=== PATIENT | female | born 1930 | race Caucasian/White ===

== ENCOUNTER 2018-01-21 11:01 | Emergency (ER) | payer MEDICARE, OTHER ==
[~2018-01-21] VITALS: Ht 160 cm; Wt 94.0 kg
[~2018-01-21 11:01] MED LIST: CALC12502 PO; COQ1200C3 OR; ESTR.3 PO; FERR324T PO; LEVO.1 PO; MICARDIS PO; NOVALOG FLEX PEN; PAXI20TA26 PO; PIOG15 PO; POTASSIUM PO; SUPETAB30 PO; TOPR25TA2 PO; VITA100020 PO; VITA200017 OR; WELC625T2 PO
[2018-01-21 11:21] VITALS: BP 136/62; PULSE 76; RESP 16; TEMP 98.3; O2SAT 97
--- NOTE | 2018-01-21 11:59 | PD ---
HPI Chief Complaint: Musculoskeletal Complaint Time Seen by Provider: 11:41 Travel History International Travel<30 days: No Contact w/Intl Traveler<30days: No Traveled to known affect area: No History of Present Illness HPI 87-year-old female that presents to the ED for evaluation of right leg pain. Per patient she's had this right leg pain chronically for some time. Per patient she's had multiple fractures and surgeries to her right leg as well as to her left leg. She has a bad history of osteoporosis and has had stress fractures because of this. Per patient she follows with Dr. Mcmahon and Dr. Alegria. 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 Per patient is become more severe the past couple days. She recently moved to [facility] and and has been having discomfort since. Per patient she said takes Tylenol for arthritis with some relief but she continues to have the pain. Apparently she tried herself to try to contact the orthopedic clinic to see they could see her but they could not see her so she called the ambulance and they brought her here. Per patient she uses a walker and even with a walker she has excruciating pain. She does tell me that she was told by Dr. Mcmahon that she might have some compression fractures in her back. She denies any numbness, tilling, weakness. Per patient the pain goes from the lateral right leg all the way down the leg. Patient per patient is 10 out of 10. She denies any injuries or falls recently. No other medical issues. Patient patient denies any urinary or bowel movement issues. PFSH Past Medical History Arthritis: Yes Blood Disorders: No Anxiety: Yes Depression: Yes Cancer: No Cardiovascular Problems: Yes High Cholesterol: Yes Diabetes: Yes Patient Takes Glucophage: No Endocrine: Yes Genitourinary: No Hypertension: Yes Immune Disorder: No Implanted Vascular Access Dvce: Yes Musculoskeletal: Yes Neurologic: Yes Psychiatric: No Reproductive: No Respiratory: No Thyroid Disease: Yes Past Surgical History Abdominal Surgery: Yes (APPENDECTOMY 1947) Appendectomy: Yes Body Medical Devices: BLANCHE EYE LENS IMPLANT Eye Surgery: Yes (BILATERAL CATARACT SX) Gynecologic Surgery: Yes (EXP LAP RIGHT OVARIAN CYST 1949; HYSTERECTOMY 1965) Joint Replacement: Yes (BILATERAL KNEES) Other Surgery: Yes Social History Alcohol Use: No Tobacco Use: No Allergies-Medications (Allergen,Severity, Reaction): Coded Allergies: penicillin G (Unverified Allergy, Intermediate, RASH, 06/18/17) Reported Meds & Prescriptions Reported Meds & Active Scripts Active Reported [Novalog Flex Pen] 20 U BID Ferrous Gluconate 325 Mg Tab 0 PO DAILY UNKNOWN DOSE Coq10 (Coenzyme Q10) 200 Mg Cap 200 Mg OR BID Vitamin B-12 (Cyanocobalamin) 1 000 Sub 1,000 Mcg PO BID Vitamin D3 (Cholecalciferol) 2,000 Unit Chw 1,000 Unit OR BID [Potassium] 550 Mg PO DAILY Os-Jasbir (Calcium Carbonate) 1,250 Mg Tab 1,250 Mg PO DAILY Theragran M (Multivitamins/Minerals Therapeutic) 1 Tab Tab 1 Tab PO DAILY Paxil (Paroxetine HCl) 20 Mg Tab 40 Mg PO DAILY [Micardis ] PO DAILY 80/25 MG 1 TAB DAILY Toprol Xl (Metoprolol Succinate) 25 Mg Tabcr 25 Mg PO BID Premarin (Estrogens Conjugated) 0.3 Mg Tab 0.3 Mg PO DAILY Actos (Pioglitazone HCl) 15 Mg Tab 15 Mg PO DAILY Welchol (Colesevelam HCl) 625 Mg Tab 625 Mg PO DIRECTED 3 TAB BID Synthroid (Levothyroxine Sodium) 100 Mcg Tab 100 Mcg PO DAILY Review of Systems Except as stated in HPI: all other systems reviewed are Neg Physical Exam Narrative GENERAL: SKIN: Warm and dry. HEAD: Atraumatic. Normocephalic. EYES: Pupils equal and round. No scleral icterus. No injection or drainage. ENT: No nasal bleeding or discharge. Mucous membranes pink and moist. Tongue is midline. No uvula deviation. NECK: Trachea midline. No JVD. CARDIOVASCULAR: Regular rate and rhythm. RESPIRATORY: No accessory muscle use. Clear to auscultation. Breath sounds equal bilaterally. GASTROINTESTINAL: Abdomen soft, non-tender, nondistended. Hepatic and splenic margins not palpable. MUSCULOSKELETAL: Extremities without clubbing, cyanosis, or edema. No obvious deformities. Full range of motion of the upper and lower extremity is bilaterally. Patient does have reproducible pain on the posterior aspect of the left. No lumbar, thoracic, cervical spine tenderness to palpation. 2+ pulses bilaterally. Sensation intact bilaterally. Pain reproducible with movement. NEUROLOGICAL: Awake and alert. No obvious cranial nerve deficits. Motor grossly within normal limits. Five out of 5 muscle strength in the arms and legs. Normal speech. PSYCHIATRIC: Appropriate mood and affect; insight and judgment normal. Data Data Last Documented VS Vital Signs Date Time Temp Pulse Resp B/P (MAP) Pulse Ox O2 Delivery O2 Flow Rate FiO2 01/21/18 11:21 98.3 76 16 136/62 (86) [address] Lumb Spine W/O Contrast (01/21/18 11:51) Femur (Ap & Lat/2vws) (01/21/18 11:51) Acetamin-Hydrocod 325-5 Mg ([place] 5-325 (01/21/18 12:00) MDM Medical Decision Making Medical Screen Exam Complete: Yes Emergency Medical Condition: Yes Medical Record Reviewed: Yes Differential Diagnosis Compression fracture versus muscle strain versus muscle spasm versus acute on chronic pain versus chronic pain Narrative Course 87-year-old female that presents to the ED for evaluation of right leg pain. Patient was properly examined and was found to have signs and symptoms consistent with appears to be likely muscle scale pain. Cannot rule out DVT or any other disease. She does have significant history of osteoporosis. Imaging was ordered. Patient was given Lortab. I was informed by ED nurse that apparently patient did give herself insulin and has not eaten breakfast. She was given food here and she's been feeling fine since. Her blood sugar rechecked was in the 80s. She will be assessed again. Patient will be signed out to incoming provider pending disposition and plan. Yasmany Isidro Jan 21, 2018 11:59
[2018-01-21] MEDS ORDERED: ACETAMINOPHEN/HYDROcodone 325 MG/5 MG TAB PO ONE (12:00)
--- NOTE | 2018-01-21 12:52 | RADRPT ---
EXAM DATE/TIME: 01/21/2018 12:11 [facility] COMPARISON: No previous studies available for comparison. INDICATIONS : Radiculopathy, right leg pain. RADIATION DOSE: 38.79 CTDIvol (mGy) MEDICAL HISTORY : Cardiovascular disease. Hypertension. Diabetes mellitus type 2. SURGICAL HISTORY : None. ENCOUNTER: Initial ACUITY: 1 day PAIN SCALE: 6/10 LOCATION: Right leg TECHNIQUE: Volumetric scanning of the lumbar spine was performed. Multiplanar reconstructions in the sagittal, coronal and oblique axial planes were performed. Using automated exposure control and adjustment of the mA and/or kV according to patient size, radiation dose was kept as low as reasonably achievable t o obtain optimal diagnostic quality images. DICOM format image data is available electronically for review and comparison. FINDINGS: VERTEBRAE: Mild to moderate loss of height L2 appears old. No retropulsion of posterior fragments. Acute mild shabazz perior endplate compression fracture L4. No retropulsion of posterior fragments. Moderate compression fracture at L5 appears old. Advanced multilevel degenerative changes. Minimal anterolisthesis of L3 on 4 T12-L1: The thecal sac has a normal diameter. No evidence of disc bulge or protrusion. The neural foramina are patent bilaterally. L1-L2: Mild broad-based disc bulge without canal stenosis. The neural foramina are patent bilaterally. L2-L3: Mild broad-based disc bulge and hypertrophic facets causing mild canal stenosis.. The neural foramin a are patent bilaterally. L3-L4: Minimal anterolisthesis with broad-based disc bulge and hypertrophic facets causes severe canal steno sis. Mild neural foraminal narrowing bilaterally. L4-L5: Mild broad-based disc bulge with hypertrophic facet cause moderate canal stenosis. Moderate bilateral neural foraminal narrowing. L5-S1: Moderate asymmetric left sided protrusion abuts the ventral thecal sac. No canal stenosis. Hypertroph ic facets. The disc abuts exiting left L5 nerve root where there is severe neural foraminal encroachm ent. Right neural foramen is patent. CONCLUSION: 1. Acute superior endplate compression fracture L4. 2. Old appearing compression deformities at L2 and L5. 3. Multilevel protrusions and hypertrophic facets causing significant canal stenosis at L3-4 and L4-5 levels as described above. Josh Ellison MD on January 21, 2018 at 12:44 Board Certified Radiologist. This report was verified electronically.
--- NOTE | 2018-01-21 12:55 | RADRPT ---
EXAM DATE/TIME: 01/21/2018 12:23 [facility] COMPARISON: No previous studies available for comparison. INDICATIONS : Right leg pain. MEDICAL HISTORY : Hypertension. Hypercholesterolemia. Arthritis. Diabetes. SURGICAL HISTORY : Appendectomy. Exp lap for right ovarian cyst. ORIF, right femur. ENCOUNTER: Initial ACUITY: 3 weeks PAIN SCORE: 4/10 LOCATION: Right leg. TECHNIQUE: Venous ultrasound of the leg was performed from the inguinal ligament to the proximal calf. Real-ck e, color Doppler and spectral tracing, compression and augmentation techniques were used. FINDINGS: There is normal compressibility of the deep venous system from the inguinal region to the proximal ca lf. No echogenic clot is seen in the lumen of the common femoral, femoral, popliteal, and posterior tibial veins. There is a normal response of the venous system to proximal and distal augmentation an d respiration. CONCLUSION: No DVT right leg. Josh Ellison MD on January 21, 2018 at 12:51 Board Certified Radiologist. This report was verified electronically.
--- NOTE | 2018-01-21 13:03 | PD ---
Data Data Last Documented VS Vital Signs Date Time Temp Pulse Resp B/P (MAP) Pulse Ox O2 Delivery O2 Flow Rate FiO2 01/21/18 11:21 98.3 76 16 136/62 (86) [address] Lumb Spine W/O Contrast (01/21/18 11:51) Femur (Ap & Lat/2vws) (01/21/18 11:51) Acetamin-Hydrocod 325-5 Mg ([place] 5-325 (01/21/18 12:00) Us Leg Venous Doppler (01/21/18 ) Bedside Glucose ROWAN.CSUGAR (01/21/18 11:59) TLSO (01/21/18 ) Ed Discharge Order (01/21/18 16:16) Brace Lso-Orthosis (01/21/18 ) Brace Thoracic Ext (01/21/18 ) MDM Supervised Visit with EVE: Yes Narrative Course Patient CARE soon from Yasmany Isidro when the patient was roomed in to [facility] pod from the back wall/ambulance [facility]. Patient appears fairly comfortable and in no obvious distress. She tells me that she has been having pain in her low back on and off for months, she states is been gradually worsening over the past week to the point where it was incredibly intense this morning. The patient does not have any cauda equina symptoms, no saddle anesthesia no difficulty with urination. She is lying in stretcher and appears very comfortable. Last [address] 01/21/18 1151 Signed Impressions: Service Date/Time: Sunday, January 21, 2018 12:11 - CONCLUSION: 1. Acute superior endplate compression fracture L4. 2. Old appearing compression deformities at L2 and L5. 3. Multilevel protrusions and hypertrophic facets causing significant canal stenosis at L3-4 and L4-5 levels as described above. Josh Ellison MD Femur X-Ray 01/21/18 1151 Signed Impressions: Service Date/Time: Sunday, January 21, 2018 13:14 - CONCLUSION: No acute fracture or joint dislocation. Gerardo Galicia MD Lower Extremity Ultrasound 01/21/18 0000 Signed Impressions: Service Date/Time: Sunday, January 21, 2018 12:23 - CONCLUSION: No DVT right leg. Josh Ellison MD Patient's care was then discussed with Dr. Oh who is Dr. Mcmahon's partner who is follows her for 2 previous lumbar vertebral fractures. I discussed with Dr. Christine be that the patient appears to have an acute fracture at L4. She has reviewed the x-rays with me and compared to her previous x-rays and indeed this does appear to be an acute fracture. After reviewing discussion of her neurologic status she agrees that the patient be placed in a TLSO brace and if she can ambulate then she can go home. If not she should be discussed with neurosurgery. While waiting for Dr. Christine be his call back a page was placed to neurosurgery and was briefly discussed with the neurosurgeon on- call who agrees the patient be placed in a TLSO brace and go home. She was able to ambulate to the bathroom with some assistance, she normally walks with a walker. She said some hesitancy with going back to her assisted living facility but will try to arrange for her to get some home health care when she gets back there. At this time she is ambulatory her pain is well controlled and she is neurologically intact and there is no indication further workup or inpatient management. She is stable for discharge. Diagnosis Primary Impression: Compression fracture of L4 lumbar vertebra Scripts Hydrocodone-Acetaminophen ([place]) 5 Mg-325 Mg Tab 1 TAB PO Q6H Y for PAIN, #20 TAB 0 Refills Prov: Roger Rain MD 01/21/18 Disposition: 01 DISCHARGE HOME Condition: Stable Roger Rain MD Jan 21, 2018 13:03
--- NOTE | 2018-01-21 13:32 | RADRPT ---
EXAM DATE/TIME: 01/21/2018 13:14 [facility] COMPARISON: No previous studies available for comparison. INDICATIONS : Right femur pain. MEDICAL HISTORY : None. SURGICAL HISTORY : Total knee replacement, right. ORIF right distal femur ENCOUNTER: Initial ACUITY: 2 weeks PAIN SCORE: 6/10 LOCATION: Right femur FINDINGS: No acute fracture joint dislocation. Evidence of previous internal fixation involving the mid to dist al femur. There is an old healed fracture involving the distal femur. The hardware is grossly intact. There is a knee prosthesis in place. CONCLUSION: No acute fracture or joint dislocation. Gerardo Galicia MD on January 21, 2018 at 13:29 Board Certified Radiologist. This report was verified electronically.
[2018-01-21] MEDS ORDERED: NORC5TAB PO (16:18)
== END 2018-01-21 17:08 | disposition home or self-care (01) ==
LOC: NEPD 11:01
DX: M48.56XA Collapsed vertebra, not elsewhere classified, lumbar region, initial encounter for fracture (principal); E07.9 Disorder of thyroid, unspecified; E11.9 Type 2 diabetes mellitus without complications; I10 Essential (primary) hypertension; Z79.4 Long term (current) use of insulin
CPT/HCPCS: 72131; 73552; 93971; 99285; L0200; L0484

== ENCOUNTER 2018-03-25 11:37 | Emergency (ER) | payer MEDICARE, OTHER ==
[~2018-03-25] VITALS: Ht 162.6 cm; Wt 93.0 kg
[~2018-03-25 11:37] MED LIST changes: +NORC5TAB PO
[2018-03-25 12:12] VITALS: BP 174/72; PULSE 42; RESP 16; TEMP 98.5; O2SAT 97
[2018-03-25] MEDS ORDERED: KETOROLAC TROMETHAMINE 60 MG/2 ML (IM) VIAL IM ONE (13:15)
--- NOTE | 2018-03-25 13:32 | PD ---
HPI Chief Complaint: Fall Time Seen by Provider: 12:59 Travel History International Travel<30 days: No Contact w/Intl Traveler<30days: No Traveled to known affect area: No History of Present Illness HPI 87-year-old female complains of low back pain and right hip pain. Patient states that she fell this morning. Patient states that she has history of fracture L4 lumbar spine about 2 months ago. Patient states that she has been seen by orthopedist and going to physical therapy. Patient states that she fell again this morning on her buttock. Patient states that she has increase in low back pain with radiation to the right hip and right leg. Patient states that she usually has low back pain with pain radiation to right hip and right leg however the pain is worse after the fall. Patient denies any headache. Patient denies any chest pain or shortness of breath. Patient denies abdominal pain. Patient denies any focal weakness or numbness of the extremity. Patient take aspirin 81 mg, 2 tablet daily. Patient takes hydrocodone as needed for back pain. On a scale of 1-10 the pain is an 8. PFSH Past Medical History Arthritis: Yes Blood Disorders: No Anxiety: Yes Depression: Yes Cancer: No Cardiovascular Problems: Yes High Cholesterol: Yes Diabetes: Yes Patient Takes Glucophage: No Endocrine: Yes Gastrointestinal Disorders: No Genitourinary: No Hypertension: Yes Immune Disorder: No Implanted Vascular Access Dvce: Yes Musculoskeletal: Yes Neurologic: Yes Psychiatric: No Reproductive: No Respiratory: No Thyroid Disease: Yes Past Surgical History Abdominal Surgery: Yes (APPENDECTOMY 1947) Appendectomy: Yes Body Medical Devices: BLANCHE EYE LENS IMPLANT Eye Surgery: Yes (BILATERAL CATARACT SX) Gynecologic Surgery: Yes (EXP LAP RIGHT OVARIAN CYST 1949; HYSTERECTOMY 1965) Joint Replacement: Yes (BILATERAL KNEES) Other Surgery: Yes Social History Alcohol Use: No Tobacco Use: No Allergies-Medications (Allergen,Severity, Reaction): Coded Allergies: penicillin G (Unverified Allergy, Intermediate, RASH, 06/18/17) Reported Meds & Prescriptions Reported Meds & Active Scripts Active [place] (Hydrocodone-Acetaminophen) 5 Mg-325 Mg Tab 1 Tab PO Q6H PRN Reported [Novalog Flex Pen] 20 U BID Ferrous Gluconate 325 Mg Tab 0 PO DAILY UNKNOWN DOSE Coq10 (Coenzyme Q10) 200 Mg Cap 200 Mg OR BID Vitamin B-12 Extended Rel (Miscellaneous Medication) 1 000 Sub 1,000 Mcg PO BID Vitamin D3 Super Strength (Cholecalciferol) 2,000 Unit Chw 1,000 Unit OR BID [Potassium] 550 Mg PO DAILY Os-Jasbir (Calcium Carbonate) 1,250 Mg Tab 1,250 Mg PO DAILY Theragran M (Multivitamins/Minerals Therapeutic) 1 Tab Tab 1 Tab PO DAILY Paxil (Paroxetine HCl) 20 Mg Tab 40 Mg PO DAILY [Micardis ] PO DAILY 80/25 MG 1 TAB DAILY Toprol Xl (Metoprolol Succinate) 25 Mg Tabcr 25 Mg PO BID Premarin (Estrogens Conjugated) 0.3 Mg Tab 0.3 Mg PO DAILY Actos 15 mg (Pioglitazone HCl) 15 Mg Tab 15 Mg PO DAILY Welchol (Colesevelam HCl) 625 Mg Tab 625 Mg PO DIRECTED 3 TAB BID Synthroid 100 mcg (Levothyroxine Sodium) 100 Mcg Tab 100 Mcg PO DAILY Review of Systems General / Constitutional: No: Fever Eyes: No: Visual changes HENT: No: Headaches Cardiovascular: No: Chest Pain or Discomfort Respiratory: No: Shortness of Breath Gastrointestinal: No: Abdominal Pain Genitourinary: No: Dysuria Musculoskeletal: No: Pain Skin: No Rash Neurologic: No: Weakness Psychiatric: No: Depression Endocrine: No: Polydipsia Hematologic/Lymphatic: No: Easy Bruising Physical Exam Narrative GENERAL: Well-nourished, well-developed patient. SKIN: Focused skin assessment warm/dry. HEAD: Normocephalic. EYES: No scleral icterus. No injection or drainage. NECK: Supple, trachea midline. No JVD or lymphadenopathy. CARDIOVASCULAR: Regular rate and rhythm without murmurs, gallops, or rubs. RESPIRATORY: Breath sounds equal bilaterally. No accessory muscle use. GASTROINTESTINAL: Abdomen soft, non-tender, nondistended. MUSCULOSKELETAL: No cyanosis, or edema. Patient has moderate tenderness in palpation lateral anterior aspect the right hip joint. limited range of motion of the right hip secondary to pain. Sensory motor function distally intact. BACK: Moderate tenderness in palpation lumbar area, without obvious deformity. No CVA tenderness. Neurologic exam normal. Data Data Last Documented VS Vital Signs Date Time Temp Pulse Resp B/P (MAP) Pulse Ox O2 Delivery O2 Flow Rate FiO2 03/25/18 12:12 98.5 42 16 174/72 (106) 97 Orders Orders Ketorolac Inj (Toradol Inj) (03/25/18 13:15) Ct Lumb Spine W/O Contrast (03/25/18 13:08) Hip, Uni(Ap&Lat) W Ap Pelvis (03/25/18 13:08) Ct Hip W/O Contrast (03/25/18 ) Acetaminophen (Tylenol) (03/25/18 16:45) Orphenadrine Inj (Norflex Inj) (03/25/18 16:45) MDM Medical Decision Making Medical Screen Exam Complete: Yes Emergency Medical Condition: Yes Interpretation(s) Last Impressions Lumbar Spine CT 03/25/18 1308 Signed Impressions: CONCLUSION: Hip and Pelvis X-Ray 03/25/18 1308 Signed Impressions: CONCLUSION: Differential Diagnosis Differential diagnosis including contusion, fracture, subluxation. Narrative Course 87-year-old female with acute exacerbation low back pain and right hip pain after a fall. History of L4 fracture. Toradol 30 mg IM. Norflex 60 mg IM. Tylenol 650 mg p.o. Diagnosis Primary Impression: Contusion of lower back Qualified Codes: S30.0XXA - Contusion of lower back and pelvis, initial encounter Additional Impression: Contusion of right hip Qualified Codes: S70.01XA - Contusion of right hip, initial encounter Patient Instructions: General Instructions Additional Instructions: Continue with medications at home for pain. Med/Other Pt SpecificInfo: No Change to Meds Disposition: 01 DISCHARGE HOME Condition: Stable Drew Perez MD March 25, 2018 13:32
--- NOTE | 2018-03-25 14:00 | RADRPT ---
EXAM DATE: 03/25/2018 1:52 PM EDT AGE/SEX: 87 years / Female INDICATIONS: Posterior right hip pain after fall. CLINICAL DATA: This is the patient's initial encounter. Patient reports that signs and symptoms have been present for 1 day and indicates a pain score of 2/10. MEDICAL/SURGICAL HISTORY: . L4 fracture. . Right femur ORIF. COMPARISON: No prior [facility] exams available for comparison. FINDINGS: Bony structures are intact and in normal alignment. Joints are intact without dislocation . Mild symmetric osteoarthritis.. Osseous density is normal. Soft tissues are unremarkable. No rad iopaque foreign bodies seen. CONCLUSION: No acute bony findings Electronically signed by: Maicol Max MD 03/25/2018 1:59 PM EDT
--- NOTE | 2018-03-25 15:19 | RADRPT ---
EXAM DATE: 03/25/2018 3:03 PM EDT AGE/SEX: 87 years / Female INDICATIONS: Patient fell today, worsening right back and leg pain. CLINICAL DATA: This is the patient's initial encounter. Patient reports that signs and symptoms have been present for 1 day and indicates a pain score of 6/10. MEDICAL/SURGICAL HISTORY: Hypertension. Diabetes. Appendectomy. RADIATION DOSE: 39.25 CTDI (mGy) [place] [facility] [place]/21/2018. . TECHNIQUE: Contiguous axial images were acquired with a multirow detector CT scanner without contras t. Multiplanar reconstructions in the sagittal and coronal plane were also performed. Using automate d exposure control and adjustment of the mA and/or kV according to patient size, radiation dose was k ept as low as reasonably achievable to obtain optimal diagnostic quality images. FINDINGS: Sagittal and coronal reconstruction show severe compression fracture through the superior and inferio r endplate of L2 which is chronic. Compression fractures are seen to the superior endplates of L4 and L5 as well. Grade 1 anterolisthesis of L3 on 4 with a vacuum disc phenomenon probably related to fac et degeneration. Mild vacuum disc phenomenon at the lumbosacral junction. Vacuum disc phenomenon in t he left SI joint with anterior spurring in the right SI joint. T12-L1: The thecal sac has a normal diameter. No evidence of disc bulge or protrusion. The neural foramina are patent bilaterally. L1-L2: The thecal sac has a normal diameter. No evidence of disc bulge or protrusion. The neural f oramina are patent bilaterally. L2-L3: The thecal sac has a normal diameter. No evidence of disc bulge or protrusion. The neural f oramina are patent bilaterally. L3-L4: Severe facet hypertrophy. Marked spinal stenosis which almost certainly compromises central n erve roots. Both neural foramina are adequate L4-L5: Marked facet hypertrophy with moderately severe central spinal stenosis. Both neural foramina are adequate L5-S1: Marginal spurring with an associated left posterior lateral disc encroaches on the left neura l foramina exacerbated by bilateral facet hypertrophy. CONCLUSION: 1. Basically stable examination with chronic compression fractures to the superior and inferior endp late of L2 and through the superior endplates of L4 and L5. No acute fracture identified. 2. Severe central spinal stenosis at L3-4 with moderately severe central spinal stenosis at L4-5. Th levi are both advanced enough to compromise central nerve roots. 3. Foraminal narrowing leftward at L5-S1 which appears severe enough to compromise the left L5 nerve root. This is due to a combination of a disc bulge/spur and facet hypertrophy. Electronically signed by: Holger Mayorga MD 03/25/2018 3:17 PM EDT
[2018-03-25] MEDS ORDERED: ACETAMINOPHEN 325 MG TAB PO ONE (16:45)
[2018-03-25] MEDS ORDERED: ORPHENADRINE INJ 60 MG/2 ML AMP IM ONE (16:45)
--- NOTE | 2018-03-25 20:40 | RADRPT ---
EXAM DATE: 03/25/2018 3:12 PM EDT AGE/SEX: 87 years / Female INDICATIONS: Trauma; fall. CLINICAL DATA: This is the patient's initial encounter. Patient reports that signs and symptoms have been present for 1 day and indicates a pain score of 7/10. MEDICAL/SURGICAL HISTORY: Hypertension. Diabetes. Appendectomy. RADIATION DOSE: 62.05 CTDI (mGy) ; Patient body habitus COMPARISON: [facility], HIP RIGHT (AP&LAT 2/3VWS) W AP PELVIS, 03/25/2018. . TECHNIQUE: Multiple contiguous axial images were acquired using a multirow detector CT scanner witho ut contrast. Multiplanar reconstruction was performed in the sagittal and coronal planes. Using aut omated exposure control and adjustment of the mA and/or kV according to patient size, radiation dose was kept as low as reasonably achievable to obtain optimal diagnostic quality images. FINDINGS: Bones: The bony structures about the hip are in normal alignment. The trabecular pattern of the fem oral neck is intact. No fracture is seen. The bony pelvic ring is intact. There is degenerative ch heather in the lower lumbar spine. There is a vacuum phenomenon seen in the sacroiliac joints bilaterall y being more pronounced on the left. Joints: No significant arthropathy or bony hypertrophy is seen. The articular surface of the femora l head is smooth. Soft Tissues: Unremarkable for a non-contrast study. The patient is status post hysterectomy. There is an umbilical hernia containing mesenteric fat. Atherosclerotic calcifications are present. Other: No foreign bodies seen. CONCLUSION: No bony fracture is seen. Electronically signed by: Maicol Briones MD 03/25/2018 8:39 PM EDT
== END 2018-03-25 17:32 | disposition home or self-care (01) ==
LOC: NEPD 11:37
DX: S30.0XXA Contusion of lower back and pelvis, initial encounter (principal); S70.01XA Contusion of right hip, initial encounter; E07.9 Disorder of thyroid, unspecified; E11.9 Type 2 diabetes mellitus without complications; E78.00 Pure hypercholesterolemia, unspecified; I10 Essential (primary) hypertension; W19.XXXA Unspecified fall, initial encounter; Z79.4 Long term (current) use of insulin; Z79.82 Long term (current) use of aspirin
CPT/HCPCS: 72131; 73502; 73700; 96372; 99284; J1885; J2360

== ENCOUNTER 2018-06-14 10:58 | Observation (INO) ==
[2018-06-14] MEDS ORDERED: Morphine Sulfate Inj 2 MG/ML Vial IV.PUSH ONE ×2 (11:25→12:36)
[2018-06-14] MEDS ORDERED: Sodium Chlor 0.9% Inj 500 ML IV.SIG ONE (11:25)
[2018-06-14] MEDS ORDERED: Acetaminophen 325 MG Tablet PO ONE (12:36)
--- NOTE | 2018-06-14 13:23 | XR ---
EXAM DATE: 06/14/2018 1:12 PM EDT AGE/SEX: 88 years / Female INDICATIONS: Lower back pain post fall on Saturday. CLINICAL DATA: This is the patient's initial encounter. Patient reports that signs and symptoms have been present for 3 days and indicates a pain score of 7/10. MEDICAL/SURGICAL HISTORY: None. None. COMPARISON: [facility] [place]/O [place], 01/21/2018. . FINDINGS: There is evidence of compression fracture injuries involving L2, L4 and L5. These were present on a p rior CT lumbar spine from 01/21/2018. The compression fracture injuries appear to be stable. There is mild grade 1 anterior spondylolisthesis of L3 over L4. There are degenerative changes present. There is atherosclerotic changes of the aorta. There is good alignment of the SI joints. CONCLUSION: Stable compression fracture injuries involving L2, L4 and L5 without significant change compared to t he prior examination. No new or significant changes are demonstrated. Electronically signed by: Gerardo Galicia MD 06/14/2018 1:22 PM EDT
--- NOTE | 2018-06-14 13:30 | XR ---
EXAM DATE: 06/14/2018 1:10 PM EDT AGE/SEX: 88 years / Female INDICATIONS: Right leg pain, post fall Saturday. CLINICAL DATA: This is the patient's initial encounter. Patient reports that signs and symptoms have been present for 3 days and indicates a pain score of 7/10. MEDICAL/SURGICAL HISTORY: None. . Right leg surgery. COMPARISON: [facility], HIP RIGHT (AP&LAT 2/3VWS) W AP PELVIS, 03/25/2018. . FINDINGS: The bony structures are grossly intact. There is evidence of previous internal fixation of the mid to distal shaft of the femur. No joint dislocation is seen. The hardware is grossly intact. CONCLUSION: No acute fracture or joint dislocation. Electronically signed by: Gerardo Galicia MD 06/14/2018 1:29 PM EDT
--- NOTE | 2018-06-14 13:53 | ED ---
HPI General Chief Complaint: Fall Stated Complaint: Right leg pain Time Seen by Provider: 06/14/18 11:14 Source: patient Mode of arrival: ambulatory Limitations: no limitations History of Present Illness HPI Narrative: 88-year-old female with PMH of DM, L3-L4 lumbar laminectomy on 06/[address] Mcmahon secondary to lumbar stenosis with radiculopathy and spondylolisthesis of L3-L4 presents the ED for evaluation of 08/13 right hip pain. Onset 2 days ago after the patient fell to the ground, landing on the floor. She denies hitting her head or loss of consciousness. She states that the pain was initially tolerable and she was able to ambulate, however whenever she attempted to get up today she felt as if the leg would give way underneath her and the pain was worsened. She denies fevers, chills, nausea, vomiting, numbness, tingling, limitations to range of motion of the extremity. She is currently taking [place], with no improvement of her pain symptoms. Related Data Home Medications Medication Instructions Recorded Confirmed acetaminophen [Tylenol Arthritis 2 tab PO DAILY 05/27/18 06/14/18 Pain] aspirin [Aspirin Low Dose] 81 mg PO DAILY 05/27/18 06/14/18 calcium carbonate-vitamin D3 1 tab PO BID 05/27/18 06/14/18 [Calcium 600 with Vitamin D3] coenzyme Q10 [CoQ-10] 200 mg PO BID 05/27/18 06/14/18 conjugated estrogens [Premarin] 0.3 mg PO DAILY 05/27/18 06/14/18 denosumab [Prolia] 60 mg SUB-Q [id number] 05/27/18 06/14/18 ibuprofen [Advil Liqui-Gel] 200 mg PO HS PRN 05/27/18 06/14/18 insulin asp prt-insulin aspart 1 sliding scale dose SUB-Q DAILY 05/27/18 [Novolog Mix 70-30 U-100 Insuln] insulin asp prt-insulin aspart 20 unit SUB-Q HS 05/27/18 06/14/18 [Novolog Mix 70-30 U-100 Insuln] levothyroxine 88 mcg PO DAILY 05/27/18 06/14/18 metoprolol tartrate 25 mg PO BID 05/27/18 06/14/18 multivitamin with minerals 1 tab PO TID 05/27/18 06/14/18 [Hair,Skin and Nails] [id number] 1 tab PO DAILY 05/27/18 06/14/18 [Theragran-M Premier 50 Plus] potassium gluconate 550 mg PO DAILY 05/27/18 06/14/18 telmisartan-hydrochlorothiazid 1 tab PO DAILY 05/27/18 06/14/18 [Micardis HCT] cyanocobalamin (vitamin B-12) 200 mcg PO DAILY 06/14/18 06/14/18 [Vitamin B-12] denosumab [Prolia] 60 mg SUB-Q [id number] 06/14/18 06/14/18 mometasone 1 applic TOPICAL DAILY 06/14/18 06/14/18 telmisartan [Micardis] 80 mg PO DAILY 06/14/18 06/14/18 Previous Rx's Medication Instructions Recorded hydrocodone-acetaminophen [Swann[place]] 1 tab PO Q4H PRN #30 tab 06/10/18 Allergies Allergy/AdvReac Type Severity Reaction Status Date / Time penicillin G Allergy Intermediate RASH Verified 06/14/18 11:23 Review of Systems ROS: all other systems reviewed are negative PMFSH Family History Family History Brother Family history of cancer Social History Social History Substance History: No History of Abuse Second Hand Smoke Exposure: No Smoking Status: Never smoker How Often Do You Have a Drink Containing Alcohol: Never Recent Travel in [facility] within the Last 8 Weeks: No Recent Out of Country Travel within the Last 8 Weeks: No Immunization History Tetanus Immunization: Unsure Hx Influenza Vaccine This Season: Yes Exam Narrative Exam Narrative: GENERAL: Well-nourished, well-developed white female in no acute distress. SKIN: Focused skin assessment warm/dry. Midline lumbar incision well healing without signs of infection. Large ecchymosis across the lower back and an 8 cm ecchymosis of the right shoulder. HEAD: Atraumatic. Normocephalic. EYES: Pupils equal and round. No scleral icterus. No injection or drainage. ENT: No nasal bleeding or discharge. Mucous membranes pink and moist. NECK: Trachea midline. No JVD. CARDIOVASCULAR: Regular rate and rhythm. No murmur appreciated. RESPIRATORY: No accessory muscle use. Clear to auscultation. Breath sounds equal bilaterally. GASTROINTESTINAL: Abdomen soft, non-tender, nondistended. Hepatic and splenic margins not palpable. MUSCULOSKELETAL: No obvious deformities. No clubbing. No cyanosis. No edema. FOCUSED RIGHT LOWER EXTREMITY EXAM: 2+ DP pulse. Homans sign negative. No edema or ecchymosis noted. 5/5 strength of dorsiflexion, plantarflexion, knee and hip flexion. No pain elicited with internal and external rotation. No foreshortening or external rotation at rest. Neurovascular intact distally. NEUROLOGICAL: Awake and alert. No obvious cranial nerve deficits. Motor grossly within normal limits. Normal speech. PSYCHIATRIC: Appropriate mood and affect; insight and judgment normal. Course Initial Documented Vital Signs Temperature 97.2 F L 06/14/18 11:11 Pulse Rate 70 06/14/18 11:11 Respiratory Rate 18 06/14/18 11:11 Blood Pressure 182/81 H 06/14/18 11:11 Pulse Oximetry 96 06/14/18 11:11 Last Documented Vital Signs Temperature 97.2 F L 06/14/18 11:11 Pulse Rate 74 06/14/18 18:29 Respiratory Rate 18 06/14/18 18:29 Blood Pressure 150/60 H 06/14/18 18:29 Pulse Oximetry 95 06/14/18 18:29 Medical Decision Making EVE Attestation EVE supervised visit: Yes Attestation: I, Dr. Bejarano, have reviewed the advance practice practitioner's documentation and am in agreement, met with the patient face to face, made the diagnosis, and the medical decision making was done by me. *My assessment and Findings: 88-year-old female with muscle weakness and intractable pain after a fall after recent surgery. X-ray and CT show no acute fracture. Her labs show hypoglycemia which resolved after she had crackers. She has no other acute findings. She has been admitted to the hospital for further evaluation and management of her pain and deconditioning secondary to her recent surgery. MDM Narrative Medical decision making narrative: 88-year-old female with PMH of DM, L3-L4 lumbar laminectomy on 06/[address] Mcmahon secondary to lumbar stenosis with radiculopathy and spondylolisthesis of L3-L4 presents the ED for evaluation of 10/10 right hip pain. Onset 2 days ago after the patient fell to the ground, landing on the floor. She was initially ambulatory with a walker but she states that today she is unable to bear weight. Vitals reviewed. Physical exam reveals a nontoxic-appearing white female no acute distress. Surgical wound of the lumbar spine without signs of infection. No tenderness of the midline spine. No tenderness to palpation of the hip, patient retains full, active R OM and is neurovascularly intact distally. She was administered 2 mg morphine. X-rays and CT reveal no fracture. She was administered a second dose of 2 mg morphine and p.o. Tylenol. We walk tested her and she was again unable to ambulate. Basic lab work was ordered and revealed hypoglycemia. Patient was allowed a snack and on recheck her blood glucose was within normal parameters. I spoke with Dr. George, on-call for Dr. Mcmahon. Plan to admit for intractable pain and inability to ambulate. I spoke with Dr. Ledbetter who agrees to accept the patient to the medicine service. Please see medicine notes for disposition. Differential Diagnosis Differential Diagnosis: Contusion versus radiculopathy versus hip fracture versus postoperative pain versus other Medical Records Medical records reviewed: Yes I reviewed the patient's medical records. Lab Data Lab results reviewed: Yes I reviewed the patient's lab results. Lab results narrative: Hypoglycemia, otherwise unremarkable. Result diagrams: 06/14/18 16:01 06/14/18 16:01 Lab Results 06/14/18 06/14/18 06/14/18 Range/Units 16:01 16:01 16:05 WBC 7.5 (4.0-11.0) th/mm3 RBC 3.24 L (4.00-5.30) mil/mm3 Hgb 11.3 L (11.6-15.3) gm/dL Hct 32.3 L (35.0-46.0) % MCV 99.6 (80.0-100.0) fL MCH 34.9 H (27.0-34.0) pg MCHC 35.1 (32.0-36.0) % RDW 13.3 (11.6-17.2) % Plt Count 159 (150-450) th/mm3 MPV 9.1 (7.0-11.0) fL Neut % (Auto) 68.7 (16.0-70.0) % Lymph % (Auto) 19.3 (9.0-44.0) % [place] % (Auto) 9.9 H (0.0-8.0) % Eos % (Auto) 1.8 (0.0-4.0) % Baso % (Auto) 0.3 (0.0-2.0) % Neut # (Auto) 5.2 (1.8-7.7) th/mm3 Lymph # (Auto) 1.4 (1.0-4.8) th/mm3 [place] # (Auto) 0.7 (0.0-0.9) th/mm3 Eos # (Auto) 0.1 (0.0-0.4) th/mm3 Baso # (Auto) 0.0 (0.0-0.2) th/mm3 WBC Differential . Differential Comment Auto diff final PT 10.3 (9.8-11.6) sec INR 1.0 Ratio APTT 24.2 L (24.3-30.1) sec Sodium 143 (136-145) meq/L Potassium 4.3 (3.5-5.1) meq/L Chloride 104 (98-107) meq/L Carbon Dioxide 32.0 (21.0-32.0) meq/L Anion Gap 7 (5-15) meq/L BUN 21 H (7-18) mg/dL Creatinine 1.26 H (0.50-1.00) mg/dL Estimated GFR 40 L (>89) mL/min POC Glucose (68-110) mg/dl Random Glucose 49 L* (74-106) mg/dL Calcium 9.8 (8.5-10.1) mg/dL Total Bilirubin 1.0 (0.2-1.0) mg/dL AST 38 H (15-37) U/L ALT 26 (10-53) U/L Alkaline Phosphatase 71 (45-117) U/L Total Protein 7.3 (6.4-8.2) g/dL Albumin 3.3 L (3.4-5.0) g/dL Urine Color (Yellw/Straw) Urine Clarity (Clear) Urine pH (5.0-8.5) Ur Specific [place] (1.002-1.035) Urine Protein (Neg-Trace) mg/dL Urine Glucose (UA) (Negative) mg/dL Urine Ketones (Negative) mg/dL Urine Occult Blood (Negative) Urine Nitrate (Negative) Urine Bilirubin (Negative) Urine Urobilinogen (Less than 2) mg/dL Ur Leukocyte Esterase (Negative) Urine RBC (0-3) /hpf Urine WBC (0-5) /hpf Ur Squamous Epith Cells (0-5) /hpf Urine Bacteria (None) /hpf Micro UA Comment Urine Culture Comments 06/14/18 06/14/18 06/14/18 Range/Units 17:03 17:15 17:57 WBC (4.0-11.0) th/mm3 RBC (4.00-5.30) mil/mm3 Hgb (11.6-15.3) gm/dL Hct (35.0-46.0) % MCV (80.0-100.0) fL MCH (27.0-34.0) pg MCHC (32.0-36.0) % RDW (11.6-17.2) % Plt Count (150-450) th/mm3 MPV (7.0-11.0) fL Neut % (Auto) (16.0-70.0) % Lymph % (Auto) (9.0-44.0) % [place] % (Auto) (0.0-8.0) % Eos % (Auto) (0.0-4.0) % Baso % (Auto) (0.0-2.0) % Neut # (Auto) (1.8-7.7) th/mm3 Lymph # (Auto) (1.0-4.8) th/mm3 [place] # (Auto) (0.0-0.9) th/mm3 Eos # (Auto) (0.0-0.4) th/mm3 Baso # (Auto) (0.0-0.2) th/mm3 WBC Differential Differential Comment PT (9.8-11.6) sec INR Ratio APTT (24.3-30.1) sec Sodium (136-145) meq/L Potassium (3.5-5.1) meq/L Chloride (98-107) meq/L Carbon Dioxide (21.0-32.0) meq/L Anion Gap (5-15) meq/L BUN (7-18) mg/dL Creatinine (0.50-1.00) mg/dL Estimated GFR (>89) mL/min POC Glucose 63 L 77 (68-110) mg/dl Random Glucose (74-106) mg/dL Calcium (8.5-10.1) mg/dL Total Bilirubin (0.2-1.0) mg/dL AST (15-37) U/L ALT (10-53) U/L Alkaline Phosphatase (45-117) U/L Total Protein (6.4-8.2) g/dL Albumin (3.4-5.0) g/dL Urine Color Yellow (Yellw/Straw) Urine Clarity Clear (Clear) Urine pH 8.0 (5.0-8.5) Ur Specific [place] 1.008 (1.002-1.035) Urine Protein Negative (Neg-Trace) mg/dL Urine Glucose (UA) Negative (Negative) mg/dL Urine Ketones Negative (Negative) mg/dL Urine Occult Blood Negative (Negative) Urine Nitrate Negative (Negative) Urine Bilirubin Negative (Negative) Urine Urobilinogen Less than 2 (Less than 2) mg/dL Ur Leukocyte Esterase Negative (Negative) Urine RBC 1 (0-3) /hpf Urine WBC Less than 1 (0-5) /hpf Ur Squamous Epith Cells 2 (0-5) /hpf Urine Bacteria Rare H (None) /hpf Micro UA Comment Culture not ind Urine Culture Comments Culture not ind Imaging Data Attestation: I personally reviewed and interpreted this imaging study as follows : My impression: No acute fracture. Radiologist's impression: Femur X-Ray 06/14/18 11:25 CONCLUSION: No acute fracture or joint dislocation. Lumbar Spine X-Ray 06/14/18 11:25 CONCLUSION: Stable compression fracture injuries involving L2, L4 and L5 without significant change compared to the prior examination. No new or significant changes are demonstrated. Hip CT 06/14/18 14:32 CONCLUSION: 1. No acute fracture or joint dislocation. 2. Stable exam compared to the prior study. Discharge Plan Discharge Disposition Patient Disposition: 30 Still Patient Discharge Details Diagnosis: Intractable neuropathic pain of right lower extremity, Inability to ambulate due to hip Physicians Team ED Provider: Nyaisa Bejarano ED Midlevel Provider: Abby Balderas Primary Care Provider: Jeff Lyn Attending Provider: Kaley Ledbetter Status ED Status: Admitted Observation Patient
[2018-06-14] MEDS ORDERED: Orphenadrine Inj 60 MG/2 ML Ampul IM ONE (15:06)
--- NOTE | 2018-06-14 15:40 | CT ---
EXAM DATE: 06/14/2018 3:27 PM EDT AGE/SEX: 88 years / Female INDICATIONS: Right hip pain status post fall three days ago. CLINICAL DATA: This is the patient's initial encounter. Patient reports that signs and symptoms have been present for 3 days and indicates a pain score of 7/10. MEDICAL/SURGICAL HISTORY: Hypothyroidism. Hysterectomy. laminectomy RADIATION DOSE: 60.27 CTDI (mGy) ; Patient body habitus COMPARISON: [facility] – [place], CT HIP RIGHT W/O CONTRAST, 03/25/2018. . TECHNIQUE: Multiple contiguous axial images were acquired using a multirow detector CT scanner witho ut contrast. Multiplanar reconstruction was performed in the sagittal and coronal planes. Using aut omated exposure control and adjustment of the mA and/or kV according to patient size, radiation dose was kept as low as reasonably achievable to obtain optimal diagnostic quality images. DICOM format i mage data is available electronically for review and comparison. FINDINGS: Today's exam is compared to the prior study from 03/25/2018. No acute bony fracture involving the righ t hip is demonstrated. The findings are stable compared to the prior study. There is good alignment a t the right hip joint. There is some mild degenerative changes present. No new or significant changes . CONCLUSION: 1. No acute fracture or joint dislocation. 2. Stable exam compared to the prior study. Electronically signed by: Gerardo Galicia MD 06/14/2018 3:39 PM EDT
[2018-06-14 16:18] LABS: Baso % (Auto) 0.3 % (0.0-2.0); Eos # (Auto) 0.1 th/mm3 (0.0-0.4); Eos % (Auto) 1.8 % (0.0-4.0); Hematocrit 32.3 % (35.0-46.0); Hemoglobin 11.3 gm/dL (11.6-15.3); Lymph # (Auto) 1.4 th/mm3 (1.0-4.8); Lymph % (Auto) 19.3 % (9.0-44.0); Mean Corpuscular HGB Conc 35.1 % (32.0-36.0); Mean Corpuscular Hemoglobin 34.9 pg (27.0-34.0); Mean Corpuscular Volume 99.6 fL (80.0-100.0); Mean Platelet Volume 9.1 fL (7.0-11.0); Mono # (Auto) 0.7 th/mm3 (0.0-0.9); Mono % (Auto) 9.9 % (0.0-8.0); Neut # (Auto) 5.2 th/mm3 (1.8-7.7); Neut % (Auto) 68.7 % (16.0-70.0); Platelet Count 159 th/mm3 (150-450); Red Blood Count 3.24 mil/mm3 (4.00-5.30); Red Cell Distribution Width 13.3 % (11.6-17.2); White Blood Count 7.5 th/mm3 (4.0-11.0)
[2018-06-14 16:52] LABS: Activated Partial Thrombo Time 24.2 sec (24.3-30.1); Prothrombin Time 10.3 sec (9.8-11.6)
[2018-06-14 17:09] LABS: Alanine Aminotransferase 26 U/L (10-53); Albumin 3.3 g/dL (3.4-5.0); Alkaline Phosphatase 71 U/L (45-117); Anion Gap 7 meq/L (5-15); Aspartate Aminotransferase 38 U/L (15-37); Blood Urea Nitrogen 21 mg/dL (7-18); Calcium 9.8 mg/dL (8.5-10.1); Chloride 104 meq/L (98-107); Glomerular Filtration Rate 40 mL/min (>89); Potassium 4.3 meq/L (3.5-5.1); Sodium 143 meq/L (136-145); Total Protein 7.3 g/dL (6.4-8.2)
[2018-06-14 17:11] LABS: Glucose,Random 49 mg/dL (74-106)
[2018-06-14 18:06] LABS: Bacteria,Urine Rare /hpf; Bilirubin,Urine Negative (Negative); Clarity,Urine Clear (Clear); Color,Urine Yellow (Yellw/Straw); Glucose,Urine (UA) Negative (Negative); Leukocyte Esterase,Urine Negative (Negative); Nitrite,Urine Negative (Negative); Specific Gravity,Urine 1.008 (1.002-1.035); Squamous Epithelial Cell,Urine 2 /hpf (0-5)
[2018-06-14] MEDS ORDERED: Dextrose 50% in Water 50 ML Vial IV.PUSH PRN (18:22)
--- NOTE | 2018-06-14 18:34 | P.HPIM ---
History of Present Illness Primary Care Physician: Jeff Lyn MD Chief Complaint: right lower extremity pain History of Present Illness: patient is a 88 y/o female with history of lumbar spinal stenosis, diabetes and hypertension, s/p recent lumbar laminectomy, who presented to ER with worsening right lower extremity pain. she says that she did fairly fine after the surgery. however she started to have some pain to the right lower extremity two days ago. she says that she couldn't keep her balance and she fell. she called 's office and she was told to have some rest. she says that the pain got worse over the past two days to the extent that she wasn't able to walk. the pain starts from the right hip and goes down all the way to the right foot. she denies any other complaints. Review of Systems All other systems reviewed negative except as stated in HPI [facility] - History History Provided By: Patient - Medical History Medical History: Medical History (Last Reviewed 06/14/18 @ 17:32 by Aracelis Grayson) Dental bridge present (Acute) Back pain (Acute) H/O: hysterectomy (Acute) S/P ORIF (open reduction internal fixation) fracture (Acute) Hypothyroid (Acute) Diabetes (Acute) Arthritis - Surgical History Surgical History: Surgical History (Last Reviewed 06/14/18 @ 11:15 by Bhavna Jones) History of removal of ovarian cyst (Acute) Hx of appendectomy (Acute) Hx of cataract surgery (Acute) History of bilateral knee replacement (Acute) - Family History Family History: Family History (Last Updated 06/14/18 @ 18:27 by Kaley Ledbetter MD) Brother Family history of cancer - Tobacco History Second Hand Smoke Exposure: No Tobacco Use In Past 30 Days: No Smoking Status: Never smoker - Alcohol History How Often Do You Have a Drink Containing Alcohol: Never - Substance Use History Substance History: No History of Abuse - Travel History Recent Travel in the [place] Within the Last 8 Weeks: No Recent Travel Out of the Country Within the Last 8 Weeks: No - Immunization History Tetanus Immunization: Unsure Hx Influenza Vaccine This Season: Yes Medications and Allergies Active Medications: Active Medications Hydrocodone Bitart/Acetaminophen ([place] 10/325) 1 tab PO Q4H PRN PRN Reason: pain 6-10 Hydrocodone Bitart/Acetaminophen ([place] 5/325) 1 tab PO Q4H PRN PRN Reason: pain 1-5 Aspirin (Ecotrin) 81 mg PO DAILY [facility] Dextrose (D50w Vial) 50 ml IV.PUSH UNSCH PRN PRN Reason: PER HYPOGLYCEMIA PROTOCOL Estrogens Conjugated (Premarin) 0.3 mg PO DAILY [facility] Glucagon (Glucagon Inj) 1 mg OTHER PRN PRN PRN Reason: for Hypoglycemia Protocol Hydromorphone HCl (Dilaudid Pf Inj) 0.5 mg IV.PUSH Q4H PRN PRN Reason: breakthrough pain Insulin Aspart (Novolog Insulin Correctional Sugar Inj) 0 unit SQ ACHS [facility]; Protocol Levothyroxine Sodium (Synthroid) 88 mcg PO DAILY [facility] Metoprolol Tartrate (Lopressor) 25 mg PO BID [facility] Non-Formulary Medication (Calcium Carbonate-Vitamin D3 [Calcium 600 With Vitamin D3]) 1 tab PO BID [facility] Non-Formulary Medication (Mometasone [Mometasone]) 1 applic TOPICAL DAILY [facility] Non-Formulary Medication (Telmisartan [Micardis]) 80 mg PO DAILY [facility] Non-Formulary Medication (Telmisartan-Hydrochlorothiazid [Micardis Hct]) 1 tab PO DAILY [facility] Allergies Allergy/AdvReac Type Severity Reaction Status Date / Time penicillin G Allergy Intermediate RASH Verified 06/14/18 11:23 Home Medications Medication Instructions Recorded Confirmed Type acetaminophen [Tylenol Arthritis 2 tab PO DAILY 05/27/18 06/14/18 History Pain] aspirin [Aspirin Low Dose] 81 mg PO DAILY 05/27/18 06/14/18 History calcium carbonate-vitamin D3 1 tab PO BID 05/27/18 06/14/18 History [Calcium 600 with Vitamin D3] coenzyme Q10 [CoQ-10] 200 mg PO BID 05/27/18 06/14/18 History conjugated estrogens [Premarin] 0.3 mg PO DAILY 05/27/18 06/14/18 History denosumab [Prolia] 60 mg SUB-Q [id number] 05/27/18 06/14/18 History ibuprofen [Advil Liqui-Gel] 200 mg PO HS PRN 05/27/18 06/14/18 History insulin asp prt-insulin aspart 1 sliding scale dose SUB-Q DAILY 05/27/18 History [Novolog Mix 70-30 U-100 Insuln] insulin asp prt-insulin aspart 20 unit SUB-Q HS 05/27/18 06/14/18 History [Novolog Mix 70-30 U-100 Insuln] levothyroxine 88 mcg PO DAILY 05/27/18 06/14/18 History metoprolol tartrate 25 mg PO BID 05/27/18 06/14/18 History multivitamin with minerals 1 tab PO TID 05/27/18 06/14/18 History [Hair,Skin and Nails] [id number] 1 tab PO DAILY 05/27/18 06/14/18 History [Theragran-M Premier 50 Plus] potassium gluconate 550 mg PO DAILY 05/27/18 06/14/18 History telmisartan-hydrochlorothiazid 1 tab PO DAILY 05/27/18 06/14/18 History [Micardis HCT] cyanocobalamin (vitamin B-12) 200 mcg PO DAILY 06/14/18 06/14/18 History [Vitamin B-12] denosumab [Prolia] 60 mg SUB-Q [id number] 06/14/18 06/14/18 History mometasone 1 applic TOPICAL DAILY 06/14/18 06/14/18 History telmisartan [Micardis] 80 mg PO DAILY 06/14/18 06/14/18 History Exam Vital signs: Vital Signs 06/14/18 11:11 06/14/18 12:35 Temperature 97.2 F L Pulse Rate 70 Respiratory Rate 18 18 Blood Pressure 182/81 H Pulse Oximetry 96 Intake & Output 06/13/18 06/14/18 06/14/18 18:59 06:59 18:59 Weight 92.079 kg - Constitutional no acute distress - Routine Neck Exam Present: supple, full ROM - Routine Respiratory Exam Present: CTA bilaterally - Routine Cardiovascular Exam Present: RRR - Routine Abdominal Exam Present: soft - Routine Extremities Exam Comments: mild bilateral pedal edema. - Routine Neurological Exam Present: alert, oriented X3 Results - Labs CBC & Chem 7: 06/14/18 16:01 06/14/18 16:01 Labs: Short CBC 06/14/18 Range/Units 16:01 WBC 7.5 (4.0-11.0) th/mm3 Hgb 11.3 L (11.6-15.3) gm/dL Hct 32.3 L (35.0-46.0) % Plt Count 159 (150-450) th/mm3 BMP 06/14/18 16:01 Sodium 143 Potassium 4.3 Chloride 104 Carbon Dioxide 32.0 BUN 21 H Creatinine 1.26 H Calcium 9.8 Liver Function 06/14/18 Range/Units 16:01 Total Bilirubin 1.0 (0.2-1.0) mg/dL AST 38 H (15-37) U/L ALT 26 (10-53) U/L Alkaline Phosphatase 71 (45-117) U/L Albumin 3.3 L (3.4-5.0) g/dL Urine 06/14/18 Range/Units 17:03 Urine Color Yellow (Yellw/Straw) Urine Clarity Clear (Clear) Urine pH 8.0 (5.0-8.5) Ur Specific [place] 1.008 (1.002-1.035) Urine Protein Negative (Neg-Trace) mg/dL Urine Glucose (UA) Negative (Negative) mg/dL - Imaging Impressions Femur X-Ray 06/14/18 11:25 CONCLUSION: No acute fracture or joint dislocation. Lumbar Spine X-Ray 06/14/18 11:25 CONCLUSION: Stable compression fracture injuries involving L2, L4 and L5 without significant change compared to the prior examination. No new or significant changes are demonstrated. Hip CT 06/14/18 14:32 CONCLUSION: 1. No acute fracture or joint dislocation. 2. Stable exam compared to the prior study. Caprini VTE Risk Assessment Caprini VTE Risk Assessment: Moderate/High Risk (score >= 2) Caprini Risk Assessment Model: Point Value = 1 Point Value = 2 Point Value = 3 Point Value = 5 Age 41-60 Minor surgery BMI > 25 kg/m2 Swollen legs Varicose veins or History of unexplained or recurrent spontaneous Oral contraceptives or hormone replacement Sepsis (< 1 month) Serious lung disease, including pneumonia (< 1 month) Abnormal pulmonary function Acute myocardial infarction Congestive heart failure (< 1 month) History of inflammatory bowel disease Medical patient at bed rest Age 61-74 Arthroscopic surgery Major open surgery (> 45 min) Laparoscopic surgery (> 45 min) Malignancy Confined to bed (> 72 hours) Immobilizing plaster cast Central venous access Age >= 75 History of VTE Family history of VTE Factor V Leiden Prothrombin [id number] Lupus anticoagulant Anticardiolipin antibodies Elevated serum homocysteine Heparin-induced thrombocytopenia Other congenital or acquired thrombophilia Stroke (< 1 month) Elective arthroplasty Hip, pelvis, or leg fracture Acute spinal cord injury (< 1 month) Prophylaxis Regimen: Total Risk Factor Score Risk Level Prophylaxis Regimen 0-1 Low Early ambulation 2 Moderate Order ONE of the following: *Sequential Compression Device (SCD) *Heparin 5000 units SQ BID 3-4 Higher Order ONE of the following medications: *Heparin 5000 units SQ TID *Enoxaparin/Lovenox 40 mg SQ daily (WT < 150 kg, CrCl > 30 mL/min) *Enoxaparin/Lovenox 30 mg SQ daily (WT < 150 kg, CrCl > 10-29 mL/min) *Enoxaparin/Lovenox 30 mg SQ BID (WT < 150 kg, CrCl > 30 mL/min) AND/OR *Sequential Compression Device (SCD) 5 or more Highest Order ONE of the following medications: *Heparin 5000 units SQ TID (Preferred with Epidurals) *Enoxaparin/Lovenox 40 mg SQ daily (WT < 150 kg, CrCl > 30 mL/min) *Enoxaparin/Lovenox 30 mg SQ daily (WT < 150 kg, CrCl > 10-29 mL/min) *Enoxaparin/Lovenox 30 mg SQ BID (WT < 150 kg, CrCl > 30 mL/min) AND *Sequential Compression Device (SCD) Assessment and Plan - Plan A/P - right lower extremity intractable pain with ambulatory dysfunction patient is s/p recent lumbar laminectomy ( 06/10/18)- case d/w [employer] ortho by ER; recommended PT evaluation. continue with pain management. -diabetes mellitus with hypoglycemic episode- the blood sugar has improved. hold home insulin regimen- will start on accu-check with SSI . -hypertension; resume home meds. will monitor and adjust the regimen as needed. -CKD- will monitor. -osteoporosis; resume home meds. -DVT prophylaxis with SCD's. -case management for dc planning. Discussed Condition With: ER, the patient and the family. Discharge Planning: pending PT evaluation and pain control.
[2018-06-14] MEDS ORDERED: HYDROmorphone PF Inj 2 MG/ML Vial IV.PUSH PRN (18:45)
[2018-06-14] MEDS: Calcium/Vitamin D 250/125 MG Tablet PO SCH (20:02)
[2018-06-14] MEDS: Metoprolol Tartrate 25 MG Tablet PO SCH (20:02)
[2018-06-15] MEDS: Levothyroxine 88 MCG Tablet PO SCH (05:55)
[2018-06-15] MEDS ORDERED: TELMISARTAN 80 MG PO SCH (09:00)
[2018-06-15] MEDS: Insulin NovoLOG Aspart Correctional Sugar Inj SQ SCH ×4 (09:06→22:30)
[2018-06-15] MEDS: Metoprolol Tartrate 25 MG Tablet PO SCH ×2 (09:09→22:31)
[2018-06-15] MEDS: Calcium/Vitamin D 250/125 MG Tablet PO SCH ×3 (09:09→22:42)
[2018-06-15] MEDS: hydroCHLOROthiazide 25 MG Tablet PO SCH (09:10)
--- NOTE | 2018-06-15 12:05 | P.CONOP ---
[facility] Consult Note - [facility] Consult date: 06/15/18 Consult reason: low back pain Chief complaint: intractable pain, inability to ambulate Narrative: 88 y/o female with history of lumbar spinal stenosis, diabetes and hypertension , s/p recent lumbar laminectomy, who presented to ER with worsening right lower extremity pain. She says that she did fairly well for 2 days after surgery, however she started to have some pain to the right lower extremity two days ago. She called 's office and she was told to rest. She states that the pain in her right leg increased over the past two days to the extent that she wasn't able to walk due to pain, not specific weakness. She denies any other complaints. She denies any fevers or chills. She denies any significant drainage from her incision. She denies any change in bowel or bladder function. Review of Systems Denies fevers, chills, nausea, vomiting, throat pain, abdominal or chest pain, cough, difficulty swallowing, change in urination, anxiety, rash, numbness or tingling above baseline, new weakness. Reports mild back pain and right lower extremity pain. [facility] - History History Provided By: Patient - Medical History Medical History: Medical History (Last Reviewed 06/15/18 @ 07:41 by Chuckie Rice) Dental bridge present (Acute) Back pain (Acute) H/O: hysterectomy (Acute) S/P ORIF (open reduction internal fixation) fracture (Acute) Hypothyroid (Acute) Diabetes (Acute) Arthritis - Surgical History Surgical History: Surgical History (Last Reviewed 06/15/18 @ 07:41 by Chuckie Rice) History of removal of ovarian cyst (Acute) Hx of appendectomy (Acute) Hx of cataract surgery (Acute) History of bilateral knee replacement (Acute) - Family History Family History: Family History (Last Updated 06/14/18 @ 18:27 by Kaley Ledbetter MD) Brother Family history of cancer - Tobacco History Second Hand Smoke Exposure: No Tobacco Use In Past 30 Days: No Smoking Status: Never smoker - Alcohol History How Often Do You Have a Drink Containing Alcohol: Never - Substance Use History Substance History: No History of Abuse - Travel History Recent Travel in the [place] Within the Last 8 Weeks: No Recent Travel Out of the Country Within the Last 8 Weeks: No - Immunization History Tetanus Immunization: Unsure Hx Influenza Vaccine This Season: Yes Medications and Allergies Active Medications: Active Medications Hydrocodone Bitart/Acetaminophen ([place] 10/325) 1 tab PO Q4H PRN PRN Reason: pain 6-10 Last Admin: 06/15/18 10:36 Dose: 1 tab Hydrocodone Bitart/Acetaminophen ([place] 5/325) 1 tab PO Q4H PRN PRN Reason: pain 1-5 Aspirin (Ecotrin) 81 mg PO DAILY [facility] Last Admin: 06/15/18 09:10 Dose: 81 mg Betamethasone Valerate (Valisone 0.1% Cream) 1 applicatio TOPICAL DAILY [facility] Last Admin: 06/15/18 10:37 Dose: Not Given Calcium/Vitamin D (Oscal With D 250/125 Mg) 500 tab PO BID [facility] Last Admin: 06/15/18 09:09 Dose: 1 tab Dextrose (D50w Vial) 50 ml IV.PUSH UNSCH PRN PRN Reason: PER HYPOGLYCEMIA PROTOCOL Estrogens Conjugated (Premarin) 0.3 mg PO DAILY [facility] Last Admin: 06/15/18 09:09 Dose: 0.3 mg Glucagon (Glucagon Inj) 1 mg OTHER PRN PRN PRN Reason: for Hypoglycemia Protocol Hydrochlorothiazide (Hydrodiuril) 25 mg PO DAILY [facility] Last Admin: 06/15/18 09:10 Dose: 25 mg Hydromorphone HCl (Dilaudid Pf Inj) 0.5 mg IV.PUSH Q4H PRN PRN Reason: BREAKTHROUGH PAIN Insulin Aspart (Novolog Insulin Correctional Sugar Inj) 0 unit SQ ACHS [facility]; Protocol Last Admin: 06/15/18 09:06 Dose: 1 unit Levothyroxine Sodium (Synthroid) 88 mcg PO DAILY@0600 [facility] Last Admin: 06/15/18 05:55 Dose: 88 mcg Losartan Potassium (Cozaar) 100 mg PO DAILY [facility] Last Admin: 06/15/18 09:08 Dose: 100 mg Metoprolol Tartrate (Lopressor) 25 mg PO BID [facility] Last Admin: 06/15/18 09:09 Dose: 25 mg Allergies Allergy/AdvReac Type Severity Reaction Status Date / Time penicillin G Allergy Intermediate RASH Verified 06/14/18 11:23 Home Medications Medication Instructions Recorded Confirmed Type acetaminophen [Tylenol Arthritis 2 tab PO DAILY 05/27/18 06/14/18 History Pain] aspirin [Aspirin Low Dose] 81 mg PO DAILY 05/27/18 06/14/18 History calcium carbonate-vitamin D3 1 tab PO BID 05/27/18 06/14/18 History [Calcium 600 with Vitamin D3] coenzyme Q10 [CoQ-10] 200 mg PO BID 05/27/18 06/14/18 History conjugated estrogens [Premarin] 0.3 mg PO DAILY 05/27/18 06/14/18 History denosumab [Prolia] 60 mg SUB-Q [id number] 05/27/18 06/14/18 History ibuprofen [Advil Liqui-Gel] 200 mg PO HS PRN 05/27/18 06/14/18 History insulin asp prt-insulin aspart 1 sliding scale dose SUB-Q DAILY 05/27/18 History [Novolog Mix 70-30 U-100 Insuln] insulin asp prt-insulin aspart 20 unit SUB-Q HS 05/27/18 06/14/18 History [Novolog Mix 70-30 U-100 Insuln] levothyroxine 88 mcg PO DAILY 05/27/18 06/14/18 History metoprolol tartrate 25 mg PO BID 05/27/18 06/14/18 History multivitamin with minerals 1 tab PO TID 05/27/18 06/14/18 History [Hair,Skin and Nails] [id number] 1 tab PO DAILY 05/27/18 06/14/18 History [Theragran-M Premier 50 Plus] potassium gluconate 550 mg PO DAILY 05/27/18 06/14/18 History telmisartan-hydrochlorothiazid 1 tab PO DAILY 05/27/18 06/14/18 History [Micardis HCT] cyanocobalamin (vitamin B-12) 200 mcg PO DAILY 06/14/18 06/14/18 History [Vitamin B-12] denosumab [Prolia] 60 mg SUB-Q [id number] 06/14/18 06/14/18 History mometasone 1 applic TOPICAL DAILY 06/14/18 06/14/18 History telmisartan [Micardis] 80 mg PO DAILY 06/14/18 06/14/18 History Exam Vital signs: Vital Signs 06/14/18 12:35 06/14/18 18:29 06/14/18 20:00 Temperature 98.4 F Pulse Rate 74 81 Respiratory Rate 18 18 18 Blood Pressure 150/60 H 121/60 Pulse Oximetry 95 98 06/14/18 23:12 06/15/18 03:19 06/15/18 07:18 Temperature 98.1 F 97.7 F 98.2 F Pulse Rate 67 71 79 Respiratory Rate 18 20 18 Blood Pressure 109/51 L 98/51 L 123/57 L Pulse Oximetry 98 95 94 L Intake & Output 06/14/18 06/15/18 06/15/18 18:59 06:59 18:59 Weight 92.079 kg Narrative: Awake, alert, no acute distress pupils equal normocephalic No JVD Moist mucous membranes Soft nontender abdomen Nonlabored respirations Regular rate Back: Brace in place. Incision appears intact without significant drainage or erythema. No significant fluctuance or palpable fluid collection. Right lower extremity: Patient reports pain with straight leg testing at approximately 60. Patient has 5/5 strength distally with EHL, FHL, dorsiflexion, plantar flexion. 4/5 strength in quadriceps and hamstrings as a result of reported pain. Patient is able to straight leg raise off the bed against gravity. Sensation appears grossly intact. Brisk cap refill. Left lower extremity: 5/5 strength throughout. Negative straight leg raise. Sensation intact. Brisk cap refill. Bilateral upper extremities: No tenderness palpation or visible deformities. Full active range of motion and strength throughout. Sensation intact. Brisk cap refill. No rash normal affect Results - Labs Result Diagrams: 06/14/18 16:01 06/14/18 16:01 Labs: Laboratory Results - last 24 hr 06/14/18 06/14/18 06/14/18 16:01 16:01 16:05 WBC 7.5 RBC 3.24 L Hgb 11.3 L Hct 32.3 L MCV 99.6 MCH 34.9 H MCHC 35.1 RDW 13.3 Plt Count 159 MPV 9.1 Neut % (Auto) 68.7 Lymph % (Auto) 19.3 Gem % (Auto) 9.9 H Eos % (Auto) 1.8 Baso % (Auto) 0.3 Neut # (Auto) 5.2 Lymph # (Auto) 1.4 Gem # (Auto) 0.7 Eos # (Auto) 0.1 Baso # (Auto) 0.0 WBC Differential . Differential Comment Auto diff final PT 10.3 INR 1.0 APTT 24.2 L Sodium 143 Potassium 4.3 Chloride 104 Carbon Dioxide 32.0 Anion Gap 7 BUN 21 H Creatinine 1.26 H Estimated GFR 40 L POC Glucose Random Glucose 49 L* Calcium 9.8 Total Bilirubin 1.0 AST 38 H ALT 26 Alkaline Phosphatase 71 Total Protein 7.3 Albumin 3.3 L Urine Color Urine Clarity Urine pH Ur Specific [place] Urine Protein Urine Glucose (UA) Urine Ketones Urine Occult Blood Urine Nitrate Urine Bilirubin Urine Urobilinogen Ur Leukocyte Esterase Urine RBC Urine WBC Ur Squamous Epith Cells Urine Bacteria Micro UA Comment Urine Culture Comments 06/14/18 06/14/18 06/14/18 17:03 17:15 17:57 WBC RBC Hgb Hct MCV MCH MCHC RDW Plt Count MPV Neut % (Auto) Lymph % (Auto) Gem % (Auto) Eos % (Auto) Baso % (Auto) Neut # (Auto) Lymph # (Auto) Gem # (Auto) Eos # (Auto) Baso # (Auto) WBC Differential Differential Comment PT INR APTT Sodium Potassium Chloride Carbon Dioxide Anion Gap BUN Creatinine Estimated GFR POC Glucose 63 L 77 Random Glucose Calcium Total Bilirubin AST ALT Alkaline Phosphatase Total Protein Albumin Urine Color Yellow Urine Clarity Clear Urine pH 8.0 Ur Specific [place] 1.008 Urine Protein Negative Urine Glucose (UA) Negative Urine Ketones Negative Urine Occult Blood Negative Urine Nitrate Negative Urine Bilirubin Negative Urine Urobilinogen Less than 2 Ur Leukocyte Esterase Negative Urine RBC 1 Urine WBC Less than 1 Ur Squamous Epith Cells 2 Urine Bacteria Rare H Micro UA Comment Culture not ind Urine Culture Comments Culture not ind 06/14/18 06/15/18 22:54 08:17 WBC RBC Hgb Hct MCV MCH MCHC RDW Plt Count MPV Neut % (Auto) Lymph % (Auto) Gem % (Auto) Eos % (Auto) Baso % (Auto) Neut # (Auto) Lymph # (Auto) Gem # (Auto) Eos # (Auto) Baso # (Auto) WBC Differential Differential Comment PT INR APTT Sodium Potassium Chloride Carbon Dioxide Anion Gap BUN Creatinine Estimated GFR POC Glucose 168 H 160 H Random Glucose Calcium Total Bilirubin AST ALT Alkaline Phosphatase Total Protein Albumin Urine Color Urine Clarity Urine pH Ur Specific [place] Urine Protein Urine Glucose (UA) Urine Ketones Urine Occult Blood Urine Nitrate Urine Bilirubin Urine Urobilinogen Ur Leukocyte Esterase Urine RBC Urine WBC Ur Squamous Epith Cells Urine Bacteria Micro UA Comment Urine Culture Comments - Diagnostic results Imaging: Impressions Femur X-Ray 06/14/18 11:25 CONCLUSION: No acute fracture or joint dislocation. Lumbar Spine X-Ray 06/14/18 11:25 CONCLUSION: Stable compression fracture injuries involving L2, L4 and L5 without significant change compared to the prior examination. No new or significant changes are demonstrated. Hip CT 06/14/18 14:32 CONCLUSION: 1. No acute fracture or joint dislocation. 2. Stable exam compared to the prior study. Assessment and Plan - Assessment and Plan 88-year-old female who is now approximately 5 days status post L3-4 laminectomy for spinal stenosis and radiculopathy Radiographs and CT scan reviewed with the patient. I do not appreciate any hip pathology such as acute fractures or instability and I do not appreciate any new lumbar spine fractures. Clinically, she has very mild weakness around her L3 and L4 nerve distribution which appears mostly related to pain. In addition , I spoke to Dr. Hernandez who reports weakness prior to the surgery as well. At this time, would recommend starting a Medrol dose pack and gabapentin, along with mobilization as tolerated. Patient can follow-up in office with Dr. Hernandez.
[2018-06-15] MEDS ORDERED: Benzocaine/Menthol 15 MG/3.6 MG SF Lozenge BUCCAL PRN (14:01)
--- NOTE | 2018-06-15 14:44 | P.PN ---
Subjective Interval history: Follow-up for low back pain and right hip/leg pain. The patient reports no improvement compared to yesterday. She still has diffuse lower back pain with radiation into the right buttocks and hip all the way down to her foot. She states she was unable to work with PT secondary to the pain. Denies fevers or chills. She does get some mild relief with pain medications. Denies any other medical complaints at this time. Physical Exam Vital signs: Vital Signs 06/14/18 18:29 06/14/18 20:00 06/14/18 23:12 Temperature 98.4 F 98.1 F Pulse Rate 74 81 67 Respiratory Rate Blood Pressure 150/60 H 121/60 109/51 L Pulse Oximetry 95 98 98 06/15/18 03:19 06/15/18 07:18 06/15/18 12:00 Temperature 97.7 F 98.2 F 98.2 F Pulse Rate 71 79 63 Respiratory Rate Blood Pressure 98/51 L 123/57 L 122/56 L Pulse Oximetry 95 94 L 96 06/15/18 13:39 Temperature Pulse Rate Respiratory Rate 0 L Blood Pressure Pulse Oximetry Intake & Output 06/14/18 06/15/18 06/15/18 18:59 06:59 18:59 Weight 92.079 kg Narrative: GENERAL: Well-nourished, well-developed elderly female patient in [facility]. SKIN: Warm and dry. No rash. Midline lumbar surgical incision healing well, with area of ecchymosis at the lower back. HEENT: Normocephalic. Atraumatic. Pupils equal and round. Mucous membranes pink and moist. NECK: Supple. Trachea midline. CARDIOVASCULAR: Regular rate and rhythm. No murmur appreciated. RESPIRATORY: No accessory muscle use. Clear to auscultation. Breath sounds equal bilaterally. GASTROINTESTINAL: Abdomen soft, non-tender, nondistended. Normoactive bowel sounds x4. MUSCULOSKELETAL: No obvious deformities. Extremities without clubbing, cyanosis , or edema. Patient declines right hip palpation secondary to pain. NEUROLOGICAL: Awake and alert. No obvious cranial nerve deficits. Moving all extremities spontaneously. 5/5 strength with bilateral plantar/dorsiflexion and knee flexion. Normal speech. PSYCHIATRIC: Appropriate mood and affect; insight and judgment normal. Results - Labs CBC & Chem 7: 06/14/18 16:01 06/14/18 16:01 Laboratory Results - last 24 hr 06/14/18 06/14/18 06/14/18 16:01 16:01 16:05 WBC 7.5 RBC 3.24 L Hgb 11.3 L Hct 32.3 L MCV 99.6 MCH 34.9 H MCHC 35.1 RDW 13.3 Plt Count 159 MPV 9.1 Neut % (Auto) 68.7 Lymph % (Auto) 19.3 [place] % (Auto) 9.9 H Eos % (Auto) 1.8 Baso % (Auto) 0.3 Neut # (Auto) 5.2 Lymph # (Auto) 1.4 [place] # (Auto) 0.7 Eos # (Auto) 0.1 Baso # (Auto) 0.0 WBC Differential . Differential Comment Auto diff final PT 10.3 INR 1.0 APTT 24.2 L Sodium 143 Potassium 4.3 Chloride 104 Carbon Dioxide 32.0 Anion Gap 7 BUN 21 H Creatinine 1.26 H Estimated GFR 40 L POC Glucose Random Glucose 49 L* Calcium 9.8 Total Bilirubin 1.0 AST 38 H ALT 26 Alkaline Phosphatase 71 Total Protein 7.3 Albumin 3.3 L Urine Color Urine Clarity Urine pH Ur Specific [place] Urine Protein Urine Glucose (UA) Urine Ketones Urine Occult Blood Urine Nitrate Urine Bilirubin Urine Urobilinogen Ur Leukocyte Esterase Urine RBC Urine WBC Ur Squamous Epith Cells Urine Bacteria Micro UA Comment Urine Culture Comments 06/14/18 06/14/18 06/14/18 17:03 17:15 17:57 WBC RBC Hgb Hct MCV MCH MCHC RDW Plt Count MPV Neut % (Auto) Lymph % (Auto) [place] % (Auto) Eos % (Auto) Baso % (Auto) Neut # (Auto) Lymph # (Auto) [place] # (Auto) Eos # (Auto) Baso # (Auto) WBC Differential Differential Comment PT INR APTT Sodium Potassium Chloride Carbon Dioxide Anion Gap BUN Creatinine Estimated GFR POC Glucose 63 L 77 Random Glucose Calcium Total Bilirubin AST ALT Alkaline Phosphatase Total Protein Albumin Urine Color Yellow Urine Clarity Clear Urine pH 8.0 Ur Specific [place] 1.008 Urine Protein Negative Urine Glucose (UA) Negative Urine Ketones Negative Urine Occult Blood Negative Urine Nitrate Negative Urine Bilirubin Negative Urine Urobilinogen Less than 2 Ur Leukocyte Esterase Negative Urine RBC 1 Urine WBC Less than 1 Ur Squamous Epith Cells 2 Urine Bacteria Rare H Micro UA Comment Culture not ind Urine Culture Comments Culture not ind 06/14/18 06/15/18 06/15/18 22:54 08:17 13:44 WBC RBC Hgb Hct MCV MCH MCHC RDW Plt Count MPV Neut % (Auto) Lymph % (Auto) [place] % (Auto) Eos % (Auto) Baso % (Auto) Neut # (Auto) Lymph # (Auto) [place] # (Auto) Eos # (Auto) Baso # (Auto) WBC Differential Differential Comment PT INR APTT Sodium Potassium Chloride Carbon Dioxide Anion Gap BUN Creatinine Estimated GFR POC Glucose 168 H 160 H 182 H Random Glucose Calcium Total Bilirubin AST ALT Alkaline Phosphatase Total Protein Albumin Urine Color Urine Clarity Urine pH Ur Specific [place] Urine Protein Urine Glucose (UA) Urine Ketones Urine Occult Blood Urine Nitrate Urine Bilirubin Urine Urobilinogen Ur Leukocyte Esterase Urine RBC Urine WBC Ur Squamous Epith Cells Urine Bacteria Micro UA Comment Urine Culture Comments - Imaging Impressions Hip CT 06/14/18 14:32 CONCLUSION: 1. No acute fracture or joint dislocation. 2. Stable exam compared to the prior study. Assessment and Plan - Plan 88-year-old female with history of lumbar spinal stenosis, diabetes, hypertension, recent laminectomy, presents with low back and right lower extremity pain and difficulty ambulating. Intractable RLE pain, difficulty ambulating; patient is status post recent lumbar laminectomy on 06/10/18, returns with increasing pain and weakness. -Right femur x-ray unremarkable. -Lumbar spine x-ray with stable compression fracture injuries at L2, L4, L5 without significant change compared to prior exam, no acute changes. -Right hip CT reviewed, no acute fracture dislocation; stable exam -Pain control with [place] prn, IV dilaudid prn -Consult orthopedics, appreciate assistance Hypertension: chronic -continue patient's metoprolol, ARB, HCTZ -Monitor BP, adjust antihypertensives as needed Diabetes Mellitus: chronic -Monitor Accu-Cheks, cover with SSI Hypothyroidism: Chronic -Continue patient's levothyroxine All other medical conditions stable, continue medications as appropriate. DVT prophylaxis: teds/SCDs
[2018-06-15] MEDS: Gabapentin 300 MG Capsule PO SCH (22:31)
[2018-06-16] MEDS: Levothyroxine 88 MCG Tablet PO SCH (05:15)
[2018-06-16 06:54] LABS: Baso % (Auto) 0.2 % (0.0-2.0); Eos # (Auto) 0.2 th/mm3 (0.0-0.4); Eos % (Auto) 2.3 % (0.0-4.0); Hemoglobin 11.1 gm/dL (11.6-15.3); Lymph # (Auto) 1.2 th/mm3 (1.0-4.8); Lymph % (Auto) 17.3 % (9.0-44.0); Mean Corpuscular HGB Conc 33.5 % (32.0-36.0); Mean Corpuscular Hemoglobin 34.1 pg (27.0-34.0); Mean Corpuscular Volume 101.6 fL (80.0-100.0); Mean Platelet Volume 8.3 fL (7.0-11.0); Mono % (Auto) 14.9 % (0.0-8.0); Neut # (Auto) 4.6 th/mm3 (1.8-7.7); Neut % (Auto) 65.3 % (16.0-70.0); Platelet Count 145 th/mm3 (150-450); Red Blood Count 3.25 mil/mm3 (4.00-5.30); Red Cell Distribution Width 13.3 % (11.6-17.2)
[2018-06-16 07:14] LABS: Calcium 9.5 mg/dL (8.5-10.1); Carbon Dioxide 32.3 meq/L (21.0-32.0)
[2018-06-16] MEDS: Calcium/Vitamin D 250/125 MG Tablet PO SCH ×2 (09:11→21:38)
[2018-06-16] MEDS: Metoprolol Tartrate 25 MG Tablet PO SCH ×2 (09:12→21:38)
[2018-06-16] MEDS: Gabapentin 300 MG Capsule PO SCH ×2 (09:12→21:37)
[2018-06-16] MEDS: hydroCHLOROthiazide 25 MG Tablet PO SCH (09:12)
[2018-06-16] MEDS: Insulin NovoLOG Aspart Correctional Sugar Inj SQ SCH ×4 (09:27→21:37)
--- NOTE | 2018-06-16 12:09 | P.PN ---
Subjective Interval history: Follow up for back pain, lumbar radiculopathy, right hip/leg pain. The patient reports improvement of her pain today, currently rated 2/10. She has not yet attempted ambulation today. She states she feels weak secondary to the pain. Denies fevers/chills. She wants to discuss with Dr. Hernandez. Physical Exam Vital signs: Vital Signs 06/15/18 13:39 06/15/18 16:00 06/15/18 19:47 Temperature 98.2 F Pulse Rate 76 Respiratory Rate 0 L 18 Blood Pressure 101/56 L Pulse Oximetry 95 97 06/15/18 22:09 06/16/18 00:00 06/16/18 03:28 Temperature 98.3 F 98.2 F 98.2 F Pulse Rate 73 75 75 Respiratory Rate 16 17 16 Blood Pressure 115/61 112/60 117/62 Pulse Oximetry 95 95 06/16/18 07:59 06/16/18 11:21 Temperature 97.5 F L 98.2 F Pulse Rate 61 66 Respiratory Rate 16 12 Blood Pressure 139/63 121/53 L Pulse Oximetry 95 99 Intake & Output 06/15/18 06/16/18 06/16/18 18:59 06:59 18:59 Intake Total 500 / 500 500 / 500 Balance 500 / 500 500 / 500 Intake: IV 500 / 500 Tube Irrigant 500 / 500 Other: Date of Last Bowel Movement 06/14/18 Narrative: GENERAL: Well-nourished, well-developed elderly female patient in [facility]. SKIN: Warm and dry. No rash. Midline lumbar surgical incision healing well, with area of ecchymosis at the lower back. HEENT: Normocephalic. Atraumatic. Pupils equal and round. Mucous membranes pink and moist. CARDIOVASCULAR: Regular rate and rhythm. No murmur appreciated. RESPIRATORY: No accessory muscle use. Clear to auscultation. Breath sounds equal bilaterally. GASTROINTESTINAL: Abdomen soft, non-tender, nondistended. Normoactive bowel sounds x4. MUSCULOSKELETAL: No obvious deformities. Extremities without clubbing, cyanosis , or edema. Right lumbar paraspinous muscles and right lateral hip mildly tender to palpation with mild pain upon ROM of right hip. NEUROLOGICAL: Awake and alert. No obvious cranial nerve deficits. Moving all extremities spontaneously. 5/5 strength with bilateral plantar/dorsiflexion and knee flexion. Normal speech. PSYCHIATRIC: Appropriate mood and affect; insight and judgment normal. Results - Labs CBC & Chem 7: 06/16/18 06:15 06/16/18 06:15 Laboratory Results - last 24 hr 06/15/18 06/15/18 06/15/18 13:44 17:22 22:13 WBC RBC Hgb Hct MCV MCH MCHC RDW Plt Count MPV Neut % (Auto) Lymph % (Auto) [place] % (Auto) Eos % (Auto) Baso % (Auto) Neut # (Auto) Lymph # (Auto) [place] # (Auto) Eos # (Auto) Baso # (Auto) WBC Differential Differential Comment Sodium Potassium Chloride Carbon Dioxide Anion Gap BUN Creatinine Estimated GFR POC Glucose 182 H 188 H 208 H Random Glucose Calcium 06/16/18 06/16/18 06/16/18 06:15 06:15 09:02 WBC 7.0 RBC 3.25 L Hgb 11.1 L Hct 33.0 L MCV 101.6 H MCH 34.1 H MCHC 33.5 RDW 13.3 Plt Count 145 L MPV 8.3 Neut % (Auto) 65.3 Lymph % (Auto) 17.3 [place] % (Auto) 14.9 H Eos % (Auto) 2.3 Baso % (Auto) 0.2 Neut # (Auto) 4.6 Lymph # (Auto) 1.2 [place] # (Auto) 1.0 H Eos # (Auto) 0.2 Baso # (Auto) 0.0 WBC Differential . Differential Comment Auto diff final Sodium 140 Potassium 4.0 Chloride 102 Carbon Dioxide 32.3 H Anion Gap 6 BUN 31 H Creatinine 1.31 H Estimated GFR 38 L POC Glucose 185 H Random Glucose 170 H D Calcium 9.5 - Imaging Femur X-Ray 06/14/18 11:25 CONCLUSION: No acute fracture or joint dislocation. Lumbar Spine X-Ray 06/14/18 11:25 CONCLUSION: Stable compression fracture injuries involving L2, L4 and L5 without significant change compared to the prior examination. No new or significant changes are demonstrated. Hip CT 06/14/18 14:32 CONCLUSION: 1. No acute fracture or joint dislocation. 2. Stable exam compared to the prior study. Assessment and Plan - Plan 88-year-old female with history of lumbar spinal stenosis, diabetes, hypertension, recent laminectomy, presents with low back and right lower extremity pain and difficulty ambulating. Intractable RLE pain, difficulty ambulating; patient is status post recent lumbar laminectomy on 06/10/18, returns with increasing pain and weakness. -Right femur x-ray unremarkable. -Lumbar spine x-ray with stable compression fracture injuries at L2, L4, L5 without significant change compared to prior exam, no acute changes. -Right hip CT reviewed, no acute fracture dislocation; stable exam -Pain control with [place] prn, IV dilaudid prn -Consult orthopedics, appreciate assistance -Consult PT, recommending rehab, difficult with placement, continue daily PT Hypertension: chronic -continue patient's metoprolol, ARB, HCTZ -Monitor BP, adjust antihypertensives as needed Diabetes Mellitus: chronic -Monitor Accu-Cheks, cover with SSI Hypothyroidism: Chronic -Continue patient's levothyroxine All other medical conditions stable, continue medications as appropriate. DVT prophylaxis: teds/SCDs Discharge Planning: PT recommending rehab. Difficult with placement. Case management assisting with discharge planning. Continue daily PT.
[2018-06-17] MEDS: Levothyroxine 88 MCG Tablet PO SCH (05:30)
[2018-06-17] MEDS: Metoprolol Tartrate 25 MG Tablet PO SCH (08:23)
[2018-06-17] MEDS: hydroCHLOROthiazide 25 MG Tablet PO SCH (08:23)
[2018-06-17] MEDS: Gabapentin 300 MG Capsule PO SCH (08:24)
[2018-06-17] MEDS: Calcium/Vitamin D 250/125 MG Tablet PO SCH (08:24)
[2018-06-17] MEDS: Insulin NovoLOG Aspart Correctional Sugar Inj SQ SCH (10:35)
--- NOTE | 2018-06-17 11:38 | P.DS ---
Date of admission: 06/14/18 18:05 Primary care physician: Jeff Lyn MD Attending physician on discharge: Dallas Topete Anticipated date of discharge: 06/17/18 Brief History from admission: patient is a 88 y/o female with history of lumbar spinal stenosis, diabetes and hypertension, s/p recent lumbar laminectomy, who presented to ER with worsening right lower extremity pain. she says that she did fairly fine after the surgery. however she started to have some pain to the right lower extremity two days ago. she says that she couldn't keep her balance and she fell. she called 's office and she was told to have some rest. she says that the pain got worse over the past two days to the extent that she wasn't able to walk. the pain starts from the right hip and goes down all the way to the right foot. she denies any other complaints. DS: Diagnosis - Discharge Diagnosis (1) Inability to ambulate due to hip Status: Acute (2) Intractable neuropathic pain of right lower extremity Status: Acute (3) Back pain Status: Acute (4) Lumbar radiculopathy Status: Acute DS: Summary Hospital Course: 88-year-old female with a history of lumbar spinal stenosis, diabetes , hypertension and lower leg neuropathy/pain. She had recent outpatient laminectomy 06/10/18 after which she experienced a fall at home. She presented to the emergency room with lower back and right lower extremity pain and difficulty ambulating. X-ray of right femur was unremarkable. Lumbar spine x- ray stress fractures and no significant change. Right hip CT no acute dislocation. Patient was evaluated by orthopedics who recommends Medrol Dosepak and gabapentin along with mobilization as tolerated. Outpatient follow- up with orthopedics (Dr. Hernandez) recommended. - Time Spent with Patient Total time spent providing and/or coordinating discharge services: Less than 30 minutes - Quality: VTE Deep Vein Thrombosis/Pulmonary Embolism Present on Admission: No Exam Vital signs: Vital Signs 06/16/18 15:30 06/16/18 21:24 06/17/18 04:00 Temperature 98.5 F Pulse Rate 82 71 71 Respiratory Rate 12 17 17 Blood Pressure 118/56 L 116/59 L 150/67 H Pulse Oximetry 93 L 97 97 06/17/18 08:00 Temperature 97.8 F Pulse Rate 70 Respiratory Rate 14 Blood Pressure 122/77 Pulse Oximetry 99 Intake & Output 06/16/18 06/17/18 06/17/18 18:59 06:59 18:59 Other: # Voids 1 Date of Last Bowel Movement 06/16/18 06/16/18 Narrative: GENERAL: Well-nourished, well-developed elderly female patient in [facility]. SKIN: Warm and dry. No rash. Midline lumbar surgical incision healing well, with area of ecchymosis at the lower back. HEENT: Normocephalic. Atraumatic. CARDIOVASCULAR: Regular rate and rhythm. No murmur appreciated. RESPIRATORY: No accessory muscle use. Clear to auscultation. Breath sounds equal bilaterally. GASTROINTESTINAL: Abdomen soft, non-tender, nondistended. Normoactive bowel sounds x4. MUSCULOSKELETAL: No obvious deformities. Extremities without clubbing, cyanosis , or edema. Right lumbar paraspinous muscles and right lateral hip mildly tender to palpation with mild pain upon ROM of right hip. NEUROLOGICAL: Awake and alert. No obvious cranial nerve deficits. Moving all extremities spontaneously. 5/5 strength with bilateral plantar/dorsiflexion and knee flexion. Normal speech. PSYCHIATRIC: Appropriate mood and affect; insight and judgment normal. Results Procedures completed during hospitalization: none Labs on day of discharge: Labs from last 24 hours 06/17/18 06/16/18 06/16/18 08:11 21:29 16:35 POC Glucose 192 H 210 H 222 H 06/16/18 12:58 POC Glucose 232 H - Impressions ITS Impressions Femur X-Ray 06/14/18 11:25 CONCLUSION: No acute fracture or joint dislocation. Lumbar Spine X-Ray 06/14/18 11:25 CONCLUSION: Stable compression fracture injuries involving L2, L4 and L5 without significant change compared to the prior examination. No new or significant changes are demonstrated. Hip CT 06/14/18 14:32 CONCLUSION: 1. No acute fracture or joint dislocation. 2. Stable exam compared to the prior study. Discharge Plan - Discharge Disposition Patient Disposition: W/Home Health Service - Discharge Condition Condition: Stable - Discharge Order Discharge Orders: Discharge Order (Routine); Ordered 06/17/18 Ordered By: Henny Saldivar - Physicians Team Primary Care Provider: Jeff Lyn Attending Provider: [place] Topete Other Providers: Natalie Reno MD ; Maya Rodríguez,Agency
[2018-06-17 11:50] VITALS: BP 113/55; PULSE 55; RESP 16; TEMP 97.4; O2SAT 98
--- NOTE | 2018-06-17 12:06 | P.DCO ---
- Physical Therapy Order: Evaluate and treat, Improve ambulation, Strength and gait training - Occupational Therapy Order: Evaluate and treat, Improve ADL, Gross motor coordination, Fine motor coordination - Home Health Nursing Order: Medical education, Signs/symptoms of disease process, Diabetic education , Medication education-adverse effect, Nursing assessment with vital signs - Home Health Aide Order: To assist in: Bathing and personal care, electronic gluing machine operator and meal prep - Mixing And Dispensing Supervisor Order: To evaluate: Living conditions/environment, Support services Order: To provide: Long range planning, Community services - Certification I have seen patient Ashley Mercedes on 06/17/18. My clinical findings support the need for the requested home health care services because: Limited mobility due to disease progression, Deconditioned with increased weakness, Medication compliance is questionable, Limited ability to care for self, Impaired cognition/judgement, High risk of falls I certify that my clinical findings support that this patient is homebound because: Post-op weakness, Impaired cognitive ability/safety, Unsteady gait/balance, Unsafe to leave home unassisted, Unable to use public transportation
--- NOTE | 2018-06-17 13:15 | P.PN ---
Subjective Interval history: Patient is seen sitting up at bedside eating breakfast. She continues to complain of back pain but tells me that it has not gotten any worse. Denies any dizziness or shortness of breath. No nausea vomiting or diarrhea. She is tolerating her meals well. Regular bowel movements and urination Physical Exam Vital signs: Vital Signs 06/16/18 15:30 06/16/18 21:24 06/17/18 04:00 Temperature 98.5 F Pulse Rate 82 71 71 Respiratory Rate 12 17 17 Blood Pressure 118/56 L 116/59 L 150/67 H Pulse Oximetry 93 L 97 97 06/17/18 08:00 06/17/18 11:45 Temperature 97.8 F 97.4 F L Pulse Rate 70 55 L Respiratory Rate 14 16 Blood Pressure 122/77 113/55 L Pulse Oximetry 99 98 Intake & Output 06/16/18 06/17/18 06/17/18 18:59 06:59 18:59 Other: # Voids 1 Date of Last Bowel Movement 06/16/18 06/16/18 Narrative: GENERAL: Well-nourished, well-developed elderly female patient in [facility]. SKIN: Warm and dry. No rash. Midline lumbar surgical incision healing well, with area of ecchymosis at the lower back. HEENT: Normocephalic. Atraumatic. CARDIOVASCULAR: Regular rate and rhythm. No murmur appreciated. RESPIRATORY: No accessory muscle use. Clear to auscultation. Breath sounds equal bilaterally. GASTROINTESTINAL: Abdomen soft, non-tender, nondistended. Normoactive bowel sounds x4. MUSCULOSKELETAL: No obvious deformities. Extremities without clubbing, cyanosis , or edema. Right lumbar paraspinous muscles and right lateral hip mildly tender to palpation with mild pain upon ROM of right hip. NEUROLOGICAL: Awake and alert. No obvious cranial nerve deficits. Moving all extremities spontaneously. 5/5 strength with bilateral plantar/dorsiflexion and knee flexion. Normal speech. PSYCHIATRIC: Appropriate mood and affect; insight and judgment normal. Results - Labs CBC & Chem 7: 06/16/18 06:15 06/16/18 06:15 Laboratory Results - last 24 hr 06/16/18 06/16/18 06/16/18 12:58 16:35 21:29 POC Glucose 232 H 222 H 210 H 06/17/18 06/17/18 08:11 12:42 POC Glucose 192 H 202 H Assessment and Plan - Assessment (1) Lumbar radiculopathy Code(s): M54.16 - Radiculopathy, lumbar region Status: Acute (2) Intractable neuropathic pain of right lower extremity Code(s): G57.91 - Unspecified mononeuropathy of right lower limb Status: Acute (3) Inability to ambulate due to hip Code(s): R26.2 - Difficulty in walking, not elsewhere classified Status: Acute (4) Back pain Code(s): M54.9 - Dorsalgia, unspecified Status: Acute (5) Diabetes Code(s): E11.9 - Type 2 diabetes mellitus without complications Status: Acute - Plan 88-year-old female with history of lumbar spinal stenosis, diabetes, hypertension, recent laminectomy, presents with low back and right lower extremity pain and difficulty ambulating. Intractable RLE pain, difficulty ambulating; patient is status post recent lumbar laminectomy on 06/10/18, returns with increasing pain and weakness. -Right femur x-ray unremarkable. -Lumbar spine x-ray with stable compression fracture injuries at L2, L4, L5 without significant change compared to prior exam, no acute changes. -Right hip CT reviewed, no acute fracture dislocation; stable exam -Orthopedics -recommends follow-up on outpatient -Consult PT Hypertension: chronic -continue patient's metoprolol, ARB, HCTZ -Monitor BP, adjust antihypertensives as needed Diabetes Mellitus: chronic -Monitor Accu-Cheks, cover with SSI Hypothyroidism: Chronic -Continue patient's levothyroxine All other medical conditions stable, continue medications as appropriate. DVT prophylaxis: teds/SCDs Discharge Planning: Patient can return to you her JAIL with home health and PT.
== END 2018-06-17 15:15 | disposition home health service (06) ==
LOC: NEPGCP 10:58 → NEPC 10:58 → NEDA 10:58 → NEPGCP 19:27
PROVIDERS: ADMIT Hospitalist; ATTEND Hospitalist
DX: M19.90 Unspecified osteoarthritis, unspecified site; Z90.49 Acquired absence of other specified parts of digestive tract; E03.9 Hypothyroidism, unspecified; Z79.82 Long term (current) use of aspirin; M54.16 Radiculopathy, lumbar region; M43.16 Spondylolisthesis, lumbar region; Z79.4 Long term (current) use of insulin; M81.0 Age-related osteoporosis without current pathological fracture; I12.9 Hypertensive chronic kidney disease with stage 1 through stage 4 chronic kidney disease, or unspecified chronic kidney disease; E11.649 Type 2 diabetes mellitus with hypoglycemia without coma; Z80.9 Family history of malignant neoplasm, unspecified; Z96.653 Presence of artificial knee joint, bilateral; G57.91 Unspecified mononeuropathy of right lower limb; N18.9 Chronic kidney disease, unspecified; Z90.710 Acquired absence of both cervix and uterus; R26.2 Difficulty in walking, not elsewhere classified; Z88.0 Allergy status to penicillin